=== PATIENT | male | born 1955 | race Caucasian/White ===

== ENCOUNTER 2021-03-22 07:51 | Outpatient (CLI) | payer BC | END 2021-03-22 07:52 | disposition home or self-care (01) | LOC: CSHCT 07:51 | PROVIDERS: ATTEND Specialist | DX: K63.89 Other specified diseases of intestine (principal); K59.00 Constipation, unspecified; N40.0 Benign prostatic hyperplasia without lower urinary tract symptoms; N28.1 Cyst of kidney, acquired | CPT/HCPCS: 74177; 82565 ==